=== PATIENT | female | born 1990 | race Hispanic/Latino ===

== ENCOUNTER 2016-08-22 09:04 | Inpatient (IN) | payer OTHER ==
[2016-08-22 11:36] LABS: MEAN CELL VOLUME 87.7 fl (81.0-99.0); MEAN CORPUSCULAR HEMOGLOBIN 29.4 pg (27.0-31.0); MEAN CORPUSCULAR HGB CONC 33.6 g/dL (33.0-37.0); RED CELL DISTRIBUTION WIDTH 14.1 % (11.5-14.5); WHITE BLOOD COUNT 17.3 K/uL (4.8-10.8)
[2016-08-22 11:56] LABS: ALB/GLOB RATIO 0.9 (1.0-2.1); ALKALINE PHOSPHATASE 146 U/L (38-126); ALT/SGPT 24 U/L (9-52); AST/SGOT 20 U/L (14-36); BILIRUBIN,TOTAL 0.2 mg/dl (0.2-1.3); BLOOD UREA NITROGEN 10 mg/dl (7-17); CARBON DIOXIDE 21 mmol/L (22-30); CHLORIDE 106 mmol/L (98-107); GFR AFRICAN-AMERICAN > 60; GLUCOSE,RANDOM 90 mg/dL (65-105); SODIUM 140 mmol/l (132-148); TOTAL PROTEIN 6.7 G/DL (6.3-8.2)
[2016-08-22 12:30] LABS: PARTIAL THROMBOPLASTIN TIME 28.5 SECONDS (23.3-32.5)
[2016-08-22] MEDS ORDERED: Nalbuphine 20 mg/ml Inj (1 ml) IVP PRN (13:03)
[2016-08-22 13:06] LABS: RBC URINE 25 /hpf (0-3); URINE BACTERIA RARE (<OCC); URINE BILIRUBIN NEGATIVE (NEGATIVE); URINE BLOOD MODERATE (NEGATIVE); URINE COLOR YELLOW (YELLOW); URINE GLUCOSE (UA) NEG (Normal); URINE KETONE NEGATIVE (NEGATIVE); URINE LEUKOCYTE ESTERASE NEG Leu/uL (Negative); URINE PROTEIN 100 mg/dL (NEGATIVE); URINE UROBILINOGEN 0.2-1.0 mg/dL (0.2-1.0); WBC URINE 14 /hpf (0-5)
[2016-08-22] MEDS: Lactated Ringer's 1,000 ML IV SCH (13:17)
[2016-08-22 15:41] VITALS: BP 130/85; PULSE 98; RESP 18; TEMP 98.2; O2SAT 97
[2016-08-22] MEDS ORDERED: ceFAZolin 2 GM in Sodium Chloride 0.9% 100 ML IVPB ONE (18:33)
[2016-08-22] MEDS ORDERED: Lactated Ringer's 1,000 ML IV SCH (18:45)
[2016-08-22] MEDS ORDERED: Morphine 1 mg/ml preservative-free Inj(Duramorph) ONE (21:05)
[2016-08-23] MEDS ORDERED: Oxycodone/Acetaminophen 5/325 mg Tab PO PRN ×3 (00:05→00:26)
[2016-08-23] MEDS: Lactated Ringer's 1,000 ML IV SCH ×4 (00:07→18:00)
[2016-08-23] MEDS ORDERED: DiphenhydrAMINE 50 mg/ml Inj IVP PRN ×2 (00:18→00:26)
[2016-08-23 08:18] LABS: BASO # 0.1 K/uL (0.0-0.2); BASO % 0.4 % (0.0-2.0); EOS # 0.1 K/uL (0.0-0.7); EOS % 0.5 % (0.0-4.0); HEMATOCRIT 37.1 % (34.0-47.0); LYMPH # 2.1 K/uL (1.0-4.3); LYMPH % 12.8 % (20.0-40.0); MEAN CELL VOLUME 88.7 fl (81.0-99.0); MEAN CORPUSCULAR HEMOGLOBIN 29.2 pg (27.0-31.0); MEAN CORPUSCULAR HGB CONC 32.9 g/dL (33.0-37.0); MEAN PLATELET VOLUME 9.1 fl (7.2-11.7); MONO # 0.9 K/uL (0.0-0.8); MONO % 5.7 % (0.0-10.0); NEUT # 13.3 K/uL (1.8-7.0); NEUT % 80.6 % (50.0-75.0); NRBC % 0.2 % (0.0-0.0); RED CELL DISTRIBUTION WIDTH 14.3 % (11.5-14.5); WHITE BLOOD COUNT 16.5 K/uL (4.8-10.8)
--- NOTE | 2016-08-23 10:02 | OBPPN ---
Datetime: 08/23/2016 09:18 PP Pain Prov: Within normal limits PP Nausea Prov: Denies PP Flatus Prov: No PP Abdomen/Uterus Prov: Normal PP Lochia Prov: Normal PP Extremities Prov: Normal PP C/S Incision Prov: Normal PP Progress Prov: Not Applicable PP Comments Phys Exam Prov: Incision w/ dry bandage in place PP Impression Prov: Normal progression PP Plan Prov: Continue present management PP Progress Note Prov: POD 1 s/p c/s, doing well, bottle feeding Continue current management
[2016-08-23] MEDS: Oxycodone/Acetaminophen 5/325 mg Tab PO PRN (16:32)
[2016-08-23] MEDS ORDERED: Influenza Vaccine(5yr & older) 0.5 ML/45 MCG IM ONE (19:28)
[2016-08-24] MEDS: Oxycodone/Acetaminophen 5/325 mg Tab PO PRN (01:16)
[2016-08-24] MEDS ORDERED: TDAP Vaccine 0.5 mL Syr IM ONE (07:00)
[2016-08-24] MEDS: Enoxaparin 40 mg Syringe SC SCH (09:38)
[2016-08-24] MEDS ORDERED: Pneumococcal 23-Valent Vaccine IM ONE (15:00)
[2016-08-25] MEDS: Enoxaparin 40 mg Syringe SC SCH (08:55)
--- NOTE | 2016-08-25 10:54 | OBPPN ---
Datetime: 08/25/2016 10:51 PP Pain Prov: Within normal limits PP Nausea Prov: Denies PP Flatus Prov: Yes PP BM Prov: Yes PP Breasts Prov: Normal PP Heart Prov: Normal PP Lungs Prov: Normal PP Abdomen/Uterus Prov: Normal PP Lochia Prov: Normal PP Vulva/Perineum Prov: Normal PP CVA Tenderness Prov: Normal PP Extremities Prov: Normal PP Comments Phys Exam Prov: Inc C/D/I No erythema, swelling, induration No DCT bilaterally PP Impression Prov: Normal progression PP Plan Prov: Discharge PP Progress Note Prov: POD #3 s/p C/S -- recovering well Discharge home, F/U in office in 1wk IP PP Procedures: None Vital Signs Provider PP: Reviewed; Within Normal Limits
--- NOTE | 2016-08-25 10:56 | OBDCSUM ---
Datetime: 08/02/2016 23:07 Discharge Instructions, Provider: Routine instructions given Discharge Diagnosis, Provider: Term Delivered Disch Referrals: None Contraception discussed, Prov: Yes Disch Activity Restrictions: No sexual activity; Nothing in vagina - [place], tampons, douche Contraception after Delivery: Not Planning to Use
--- NOTE | 2016-08-25 23:13 | OBDS ---
DELIVERY PERSONNEL Delivery Doctor: Kassidy Multani MD Scrub Nurse: Naya Kelly Interior Horticulturist: Zakia Trejo RN Anesthesiologist: Brandon Amin MD MATERNAL INFORMATION Delivery Anesthesia: Spinal Estimated Blood Loss (ml): 800 Placenta Cultured: Yes Maternal Complications: None Provider Comments: Primary low flap transverse section via Pfannenstiel incision. Patient delivered viable infant male with Apgars of 9 and 9 at one and 5 minutes respectively. Nor mal uterus, normal tubes and ovaries bilaterally. Estimated blood loss 800 mL Fluids 2000 mL lactated Ringer's Urine output 200 mL of clear urine complications LABOR SUMMARY EDC: 08/31/2016 00:00 No. Babies in Womb: 1 Attempted: No Labor Anesthesia: None LABOR INFORMATION Reason for Induction: Not Applicable Oxytocin: N/A Group B Beta Strep: Negative Antibiotics # of Doses: 1 Antibiotics Time of Last Dose: 2054 Steroids Given: None Reason Steroids Not Administered: Not Applicable MEMBRANES Membranes Rupture Method: Spontaneous Rupture of Membranes: 08/22/2016 05:00 Length of Rupture (hrs): 17.50 Amniotic Fluid Color: Clear Amniotic Fluid Amount: Small Amniotic Fluid Odor: Normal STAGES OF LABOR Stage 3 hrs: 0 Stage 3 min: 1 CSECTION DELIVERY Primary Indication: Other Other Primary Indication: Elective Secondary Indication: N/A CSection Urgency: Non Elective CSection Incidence: Primary Labor: Labor Elective: Elective CSection Incision: Lower Uterine Transverse BABY A INFORMATION Delivery Date/Time: 08/22/2016 22:30 Method of Delivery: Born in Route : No : N/A Forceps: N/A Vacuum Extraction: N/A Shoulder Dystocia : No SHOULDER DYSTOCIA BABY A Delivery Date/Time: 08/22/2016 22:30 PRESENTATION/POSITION BABY A Presentation: Cephalic Cephalic Presentation: Vertex Breech Presentation: N/A PLACENTA INFORMATION BABY A Placenta Delivery Time : 08/22/2016 22:31 Placenta Method of Delivery: Manual Removal Placenta Status: Delivered SCORES BABY A Heart Rate 1 min: >100 bpm Resp Effort 1 min: Good Cry Reflex Irritability 1 min: Cough or Sneeze or Pulls Away Muscle Tone 1 min: Active Motion Color 1 min: Body [place], Extremities Blue Resuscitation Effort 1 min: Tactile Stimulation SCORE 1 MIN: 9 Heart Rate 5 min: >100 bpm Resp Effort 5 min: Good Cry Reflex Irritability 5 min: Cough or Sneeze or Pulls Away Muscle Tone 5 min: Active Motion Color 5 min: Body [place], Extremities Blue Resuscitation Effort 5 min: N/A SCORE 5 MIN: 9 INFORMATION BABY A Gestational Age at Delivery: 38.5 Gestational Status: Term Infant Outcome : Liveborn Condition : Stable Sex: Female IDENTIFICATION/MEDS BABY A ID Band Number: [id number] ID Band Location: Left Leg; Left Arm WEIGHT/LENGTH BABY A Birthweight (gms): 3180 Infant Weight (lb): 7 Weight (oz): 0 Length Inches: 19.50 Length cms: 49.5 CORD INFORMATION BABY A No. Cord Vessels: 3 Nuchal Cord : N/A Cord Blood Taken: Yes Suction: Mouth; Nose ASSESSMENT BABY A Infant Complications: None Physical Findings at Delivery: Within Normal Limits Infant Respirations: Appears Normal Dental Practice Manager/ALS Called : No Infant Care By: MZJeannie Transferred To: [facility]
--- NOTE | 2016-08-26 08:34 | OP ---
PROCEDURE DATE: 08/22/2016 PREOPERATIVE DIAGNOSES: Elective primary section, labor, gestational hypertension, gestatio nal diabetes, morbid obesity. POSTOPERATIVE DIAGNOSES: Elective primary section, labor, gestational hypertension, gestati onal diabetes, morbid obesity. OPERATION PERFORMED: Primary low flap transverse section via Pfannenstiel incision. OPERATIVE FINDINGS: Viable infant male with Apgars of 9 and 9 at 1 and 5 minutes respectively, sameera l uterus, normal tubes and ovaries bilaterally. ESTIMATED BLOOD LOSS: 800 mL. FLUIDS: 2000 mL lactated ringers. URINE OUTPUT: 200 mL of clear urine at the end of the procedure. SURGEON: Rocky Multani MD. WASHING MACHINE MECHANIC: Pedro Anne MD. Dr. Anne was present from the beginning of the procedure to t he end of the procedure. Dr. Anne was integral in exposing the surgical field, controlling intr aoperative bleeding, manual delivery of the infant. ANESTHESIA: Spinal. ANESTHESIOLOGIST Dr. Amin. COMPLICATIONS: None. PROCEDURE: The patient was taken to the operating room where spinal anesthesia was found to be adequ ate. The patient was prepped and draped in normal sterile fashion in the dorsal supine position with a leftward tilt. A Pfannenstiel skin incision was made with the scalpel. This was carried down thr ough to the underlying layer of fascia with a scalpel. Midline defects were made in the fascial laye r with the scalpel. The fascial incision was then extended bilaterally sharply with curved Guajardo scis sors. The fascial layer was from the underlying rectus muscles, both bluntly and sharply w ith curved Guajardo scissors. The rectus muscles were at the midline. The peritoneum was then identified, tented up with Bailey clamps x 2 and entered sharply with Metzenbaum scissors. This sheryl toneal incision was then extended superiorly and inferiorly with good visualization of the urinary bl adder. Bladder blade was inserted into the abdomen. The vesicouterine peritoneum was then identifie d, tented up with Bailey clamps x 2, and entered sharply with Metzenbaum scissors. This peritoneal in cision was then extended bilaterally with Metzenbaum scissors. The bladder flap was created digitall y. The Arabella retractor was placed over the urinary bladder. The uterus was incised with a scalpel. The uterine incision was extended bilaterally bluntly. The i nfant's head was delivered atraumatically. Nose and mouth were suctioned with bulb suction. The rem ainder of the was delivered without complication. The cord was clamped and cut. The infant w as handed off to awaiting pediatricians. Cord blood was collected. The placenta was removed manually. The uterus was cleared of all clots an d debris. The uterine incision was repaired with 0 Vicryl in a running, locked fashion. A second la renate of the same suture was used to imbricate the first and to obtain excellent hemostasis. Reinspect ion of the uterine incision proved excellent hemostasis. The abdomen and pelvis were irrigated with copious amounts of warm normal saline. The reinspection of the uterine incision proved excellent hem ostasis. All instruments were removed from the patient. The peritoneal layer was closed with a running stitch of 2-0 chromic. The rectus muscles were reapproximated with a running stitch of 2-0 chromic. The fa scial layer was closed with a running stitch of 0 Vicryl. Subcutaneous tissue was reapproximated wit h a running stitch of 3-0 plain. The skin was closed with a subcutaneous stitch of 3-0 Vicryl. The patient tolerated the procedure well. All sponge, lap, needle counts were correct x 2. The duyen ent was given 3 grams of Ancef just prior to the beginning of the procedure. There were no complicat ions. The patient was taken to the recovery room awake and in stable condition. Rocky Multani MD cc: [id number] TT: 08/26/2016 08:34:09 jn
== END 2016-08-25 12:00 | disposition home or self-care (01) | DRG 651 ==
LOC: H.EROB2 09:04 → H.L&D 10:44 → H.OB/GYN 08-23 02:00
PROVIDERS: ADMIT Obstetrics & Gynecology Gynecology; ATTEND Obstetrics & Gynecology Gynecology
PROC: 10D00Z1 Extraction of Products of Conception, Low, Open Approach (ICD-10-PCS; principal; 2016-08-22)
PROC: 4A1HXCZ Monitoring of Products of Conception, Cardiac Rate, External Approach (ICD-10-PCS; 2016-08-22)
DX: O24.429 Gestational diabetes mellitus in childbirth, unspecified control (principal); E66.01 Morbid (severe) obesity due to excess calories; Z37.0 Single live birth; O99.344 Other mental disorders complicating childbirth; E03.9 Hypothyroidism, unspecified; O99.284 Endocrine, nutritional and metabolic diseases complicating childbirth; F41.8 Other specified anxiety disorders; O99.214 Obesity complicating childbirth; O13.4 Gestational [pregnancy-induced] hypertension without significant proteinuria, complicating childbirth; Z3A.38 38 weeks gestation of pregnancy